=== PATIENT | female | born 1990 | race Caucasian/White ===

== ENCOUNTER 2019-09-15 02:11 | Emergency (ER) | payer SELFPAY ==
[2019-09-15 03:37] VITALS: BP 117/70; PULSE 94; TEMP 98.1; BMI 27.6
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
== END 2019-09-15 06:31 | disposition home or self-care (01) ==
LOC: JER 02:11
DX: M54.2 Cervicalgia (principal); Y04.2XXA Assault by strike against or bumped into by another person, initial encounter; Y93.89 Activity, other specified; Y92.414 Local residential or business street as the place of occurrence of the external cause; Y99.8 Other external cause status; Y07.6 Multiple perpetrators of maltreatment and neglect
CPT/HCPCS: 72125-TC; 99282-25